=== PATIENT | male | born 1980 | race Caucasian/White ===

== ENCOUNTER 2017-08-12 16:02 | Emergency (ER) | payer SELFPAY ==
[~2017-08-12] VITALS: Ht 175.3 cm; Wt 90.3 kg
[~2017-08-12 16:02] MED LIST: ACETAMINOPHEN-1 EAC1 PO; KEFLEX500 MG PO; NAPROXEN500 MG PO
== END 2017-08-12 19:35 | disposition home or self-care (01) ==
LOC: ED 16:02
DX: L02.415 Cutaneous abscess of right lower limb (principal)

== ENCOUNTER 2018-03-03 21:47 | Emergency (ER) | payer SELFPAY ==
[~2018-03-03] VITALS: Ht 175.3 cm; Wt 98.9 kg
== END 2018-03-03 23:00 | disposition left against medical advice (07) ==
LOC: ED 21:47
DX: Z53.21 Procedure and treatment not carried out due to patient leaving prior to being seen by health care provider (principal)

== ENCOUNTER 2020-04-02 13:32 | Emergency (ER) | payer SELFPAY ==
[~2020-04-02] VITALS: Ht 175.3 cm; Wt 98.9 kg
--- OUTSIDE RECORDS SUMMARY | ~2020-04-02 | XMS | Encounter Summary ---
Demographics + + + | Address | [address] | | | [address] | | | [place] [address] | + + + | Home Phone | | + + + | Preferred Language | Unknown | + + + | Marital Status | Single | + + + | Church Affiliation | Unknown | + + + | Race | White | + + + | Ethnic Group | Not or | + + + Author + + + | Author | [facility] | | | and [place] | + + + | Organization | [facility] | | | and [place] | + + + | Address | Unknown | + + + | Phone | Unavailable | + + + Support + + +---------+ + | Name | Relationship | Address | Phone | + + +---------+ + | Per Patient | ECON | Unknown | | | [phone] None | | | | + + +---------+ + Care Team Providers + +------+ + | Care Ore Crusher Name | Role | Phone | + +------+ + | Wenceslao Sanford | PCP | | + +------+ + Encounter Details +--------+ + + + + | Date | Type | Department | Care Team | Description | +--------+ + + + + | 11/23/ | Hospital | [facility] | Wenceslao Sanford | Chronic low back | | 2013 | Encounter | MED CTR XRAY [address] | [address] | pain | | | | [place] | [address] [place] | | | | | [place] [address] | [place] [address] | | | | | [phone] | [phone] | | | | | | | | +--------+ + + + + Social History + +-------+ +--------+------+ | Tobacco Use | Types | Packs/Day | Years | Date | | | | | Used | | + +-------+ +--------+------+ | Never Assessed | | | | | + +-------+ +--------+------+ + + + | Sex Assigned at | Date Recorded | | | | + + + | Not on file | | + + + documented as of this encounter Plan of Treatment Not on filedocumented as of this encounter Procedures + +--------+ + + + | Procedure Name | Priori | Date/Time | Associated Diagnosis | Comments | | | ty | | | | + +--------+ + + + | XR LUMBAR SPINE 4 + | Routin | 11/23/2013 | Chronic low back | Results for this | | VW | e | 1:36 PM | pain | procedure are in the | | | | PDT | | results section. | + +--------+ + + + documented in this encounter Results XR Lumbar Spine 4 + Vw (11/23/2013 1:36 PM PDT) + + | Specimen | + + | | + + + + ----+ | Narrative | Performed At | + + ----+ | XR LUMBAR | [facility] | | SPINE 4 + VW 11/23/2013 1:10 PM HISTORY: chronic low back pain. | LAB | | COMPARISON: None. FINDINGS:There is mild spondylosis. Vertebral body | | | height are preserved with no evidencefor compression fractures. Bone | | | mineralization is normal. Disc height aremaintained. Facet joints are | | | intact. There is no evidence for spondylolysis.Visualized ribs and | | | pelvic osseous structures show no acute findings. IMPRESSION -MILD | | | SPONDYLOSIS. Dictated and Signed by: Huseyin Denis MD Electronically | | | signed: 11/23/2013 1:49 PM | | |maintained. Facet joints are intact. There is no evidence for spondylolysis. | | |Visualized ribs and pelvic osseous structures show no acute findings. | | | | | |IMPRESSION - | | |MILD SPONDYLOSIS. | | | | | |Dictated and Signed by: Huseyin Denis MD | | | Electronically signed: 11/23/2013 1:49 PM | | + + ----+ + + | Procedure Note | + + | Luigi, Rad Results In - 11/23/2013 1:52 PM PDT XR LUMBAR SPINE 4 + VW 11/23/2013 1:10 | | PMHISTORY: chronic low back pain.COMPARISON: None.FINDINGS:There is mild spondylosis. | | Vertebral body height are preserved with no evidencefor compression fractures. Bone | | mineralization is normal. Disc height aremaintained. Facet joints are intact. There is | | no evidence for spondylolysis.Visualized ribs and pelvic osseous structures show no | | acute findings.IMPRESSION -MILD SPONDYLOSIS.Dictated and Signed by: Huseyin Denis MD | | Electronically signed: 11/23/2013 1:49 PM | |There is mild spondylosis. Vertebral body height are preserved with no evidence | |for compression fractures. Bone mineralization is normal. Disc height are | |maintained. Facet joints are intact. There is no evidence for spondylolysis. | |Visualized ribs and pelvic osseous structures show no acute findings. | | | |IMPRESSION - | |MILD SPONDYLOSIS. | | | |Dictated and Signed by: Huseyin Denis MD | | Electronically signed: 11/23/2013 1:49 PM | + + + +---------+ + + | Performing | Address | City/State/Zipcode | Phone Number | | Organization | | | | + +---------+ + + | MISCELLANEOUS LAB | | | [phone] | + +---------+ + + | MISCELANIOUS LAB | | | [phone] | + +---------+ + + documented in this encounter Visit Diagnoses + + | Diagnosis | + + | Chronic low back pain Lumbago | + + documented in this encounter"
--- OUTSIDE RECORDS SUMMARY | ~2020-04-02 | XMS | Clinical Summary ---
Demographics + + + | Address | [address] | | | [address] | | | [place] [address] | + + + | Home Phone | | + + + | Preferred Language | Unknown | + + + | Marital Status | Single | + + + | Presybeterian Affiliation | Unknown | + + + | Race | White | + + + | Ethnic Group | Not or | + + + Author + + + | Author | [facility] | | | and [place] | + + + | Organization | [facility] | | | and [place] | + + + | Address | Unknown | + + + | Phone | Unavailable | + + + Support + + +---------+ + | Name | Relationship | Address | Phone | + + +---------+ + | Per Patient | ECON | Unknown | | | [phone] None | | | | + + +---------+ + Care Team Providers + +------+ + | Care Bowling Floor Desk Clerk Name | Role | Phone | + [...] | [employer] | [facility] | [id number] | | [phone] | | Medica | [...] | | | 1 (Home) | [place] [address] | + +--------+ +--------+ + + Advance Directives + + + + + | Type | Date Recorded | Patient | Explanation | | | | Operations Recruiter | | + + + + + | Power of | | | | | Jewelry Sales Representative | | | | + + + + + | Advance | | | | | Directive | | | | + + + + +"
--- OUTSIDE RECORDS SUMMARY | 2020-04-02 13:36 | XMS ---
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 Kris has no Care Guidelines for this patient. Luci VISIT COUNT (12 MO.) 1 [facility] TOTAL 1 NOTE: Visits indicate total known visits. ED/C VISIT TRACKING (12 MO.) 04/02/2020 13:32 [facility] [place] TYPE: Emergency COMPLAINT: - LEFT SIDED FACIAL DROOPING INPATIENT VISIT TRACKING (12 MO.) No inpatient visits to display in this time frame [id number]
[2020-04-02] MEDS ORDERED: VALACYCLOVIR1000 MG PO (14:23)
[2020-04-02] MEDS ORDERED: PREDNISONE20 MG PO (14:23)
[2020-04-02] MEDS ORDERED: NORCO 5-325 TA1 EACH PO (14:24)
== END 2020-04-02 14:47 | disposition home or self-care (01) ==
LOC: ED 13:32
DX: B02.21 Postherpetic geniculate ganglionitis (principal)
CPT/HCPCS: 99283

== ENCOUNTER 2020-05-17 13:16 | Emergency (ER) | payer SELFPAY ==
[~2020-05-17] VITALS: Ht 175.3 cm; Wt 98.9 kg
--- OUTSIDE RECORDS SUMMARY | ~2020-05-17 | XMS | Clinical Summary ---
Demographics + + + | Address | [address] | | | [address] | | | [place] [address] | + + + | Home Phone | | + + + | Preferred Language | Unknown | + + + | Marital Status | Single | + + + | Jehovah'S Witness Affiliation | Unknown | + + + | Race | White | + + + | Ethnic Group | Not or | + + + Author + + + | Author | [facility] | | | and [place] | + + + | Organization | [facility] | | | and [place] | + + + | Address | Unknown | + + + | Phone | Unavailable | + + + Support + + +---------+ + | Name | Relationship | Address | Phone | + + +---------+ + | Per Patient | ECON | Unknown | | | [phone] None | | | | + + +---------+ + Care Team Providers + +------+ + | Care Cream Dumper Name | Role | Phone | + [...] | [employer] | [facility] | [id number] | | [phone] | | Medica | [...] | | | [address] (Home) | [place] [address] | + +--------+ +--------+ + + Advance Directives + + + + + | Type | Date Recorded | Patient | Explanation | | | | Travel Assistant | | + + + + + | Power of | | | | | Supervisor Meter Shop | | | | + + + + + | Advance | | | | | Directive | | | | + + + + +"
--- OUTSIDE RECORDS SUMMARY | ~2020-05-17 | XMS | Encounter Summary ---
Demographics + + + | Address | [address] | | | [address] | | | [place] [address] | + + + | Home Phone | | + + + | Preferred Language | Unknown | + + + | Marital Status | Single | + + + | Bahai Affiliation | Unknown | + + + | Race | White | + + + | Ethnic Group | Not or | + + + Author + + + | Author | [facility] | | | and [place] | + + + | Organization | [facility] | | | and [place] | + + + | Address | Unknown | + + + | Phone | Unavailable | + + + Support + + +---------+ + | Name | Relationship | Address | Phone | + + +---------+ + | Per Patient | ECON | Unknown | | | [phone] None | | | | + + +---------+ + Care Team Providers + +------+ + | Care Tube Former Operator Name | Role | Phone | + +------+ + | Wenceslao Sanford | PCP | | + +------+ + Encounter Details +--------+ + + + + | Date | Type | Department | Care Team | Description | +--------+ + + + + | 11/23/ | Hospital | [facility] | Wenceslao Sanford | Chronic low back | | 2013 | Encounter | MED CTR XRAY [address] | [address] | pain | | | | [place] | [address] [place] | | | | | [place] [address] | [place] [address] | | | | | [phone] | [phone] | | | | | | | [...] + | MISCELLANEOUS LAB | | | [phone] | + +---------+ + + | MISCELANIOUS LAB | | | [phone] | + +---------+ + + documented in this encounter Visit Diagnoses + + | Diagnosis | + + | Chronic low back pain Lumbago | + + documented in this encounter"
[~2020-05-17 13:16] MED LIST changes: +NORCO 5-325 TA1 EACH PO; +PREDNISONE20 MG PO; +VALACYCLOVIR1000 MG PO
--- OUTSIDE RECORDS SUMMARY | 2020-05-17 13:20 | XMS ---
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 Care History Medical/Surgical 04/03/2020 [facility] CONTACTED PHONE #\T\nbsp; LISTED- TRISHA ANSWERED AND STATED PATIENT CONTACT NUMBER IS INCORRECT. - PATIENT WOULD BENEFIT - TO APPLY FOR STATE INSURANCE IF NO OTHER INSURANCE AVAILABLE. PLEASE CONTACT OPAL EXT [phone] IF PATIENT IS SEEN IN THE ED TO HELP PATIENT APPLY FOR INSURANCE BENEFITS. - PLEASE HAVE PATIENT PROVIDE UPDATED PHONE # E.D. VISIT COUNT (12 MO.) 2 [facility] TOTAL 2 NOTE: Visits indicate total known visits. ED/UCC VISIT TRACKING (12 MO.) 05/17/2020 13:17 [facility] [place] TYPE: Emergency COMPLAINT: - MULTIPLE COMPLAINTS 04/02/2020 13:32 [facility] [place] TYPE: Emergency COMPLAINT: - LEFT SIDED FACIAL DROOPING DIAGNOSES: - Postherpetic geniculate ganglionitis - Facial weakness INPATIENT VISIT TRACKING (12 MO.) No inpatient visits to display in this time frame [id number]
[2020-05-17] MEDS ORDERED: ONDANSETRON ODT8 MG PO (14:43)
[2020-05-17] MEDS ORDERED: PREDNISONE20 MG PO (14:43)
[2020-05-17] MEDS ORDERED: FAMCICLOVIR500 MG PO (14:43)
== END 2020-05-17 15:00 | disposition home or self-care (01) ==
LOC: ED 13:16
DX: G51.0 Bell's palsy (principal); F17.200 Nicotine dependence, unspecified, uncomplicated; Z79.52 Long term (current) use of systemic steroids; Z79.899 Other long term (current) drug therapy
CPT/HCPCS: 70450; 99284-25

== ENCOUNTER → 2020-05-28 | Emergency (ER) | payer OTHER ==
[~2020-05-28] VITALS: Ht 175.3 cm; Wt 101.2 kg
[~2020-05-28] MED LIST changes: +CYCLOBENZAPRINE10 MG PO; +FAMCICLOVIR500 MG PO; +ONDANSETRON ODT8 MG PO
--- OUTSIDE RECORDS SUMMARY | ~2020-05-28 | XMS | Clinical Summary ---
Demographics + + + | Address | [address] | | | [address] | | | [place] [address] | + + + | Home Phone | | + + + | Preferred Language | Unknown | + + + | Marital Status | Single | + + + | Congregational Affiliation | Unknown | + + + | Race | White | + + + | Ethnic Group | Not or | + + + Author + + + | Author | [facility] | | | and [place] | + + + | Organization | [facility] | | | and [place] | + + + | Address | Unknown | + + + | Phone | Unavailable | + + + Support + + +---------+ + | Name | Relationship | Address | Phone | + + +---------+ + | Per Patient | ECON | Unknown | | | [phone] None | | | | + + +---------+ + Care Team Providers + +------+ + | Care Canvas Goods Fabricator Name | Role | Phone | + +------+ + | Wenceslao Sanford | PCP | | + +------+ + Allergies Not on File Medications Not on file Active Problems Not on file Social History + +-------+ +--------+------+ | Tobacco [...] on file | | + + + Last Filed Vital Signs Not on file Plan of Treatment + + +-------+ + | Health Maintenance | Due Date | Last | Comments | | | | Done | | + + +-------+ + | Vaccine: | | | | | Dtap/Tdap/Td (1 - | 1 | | | | Tdap) | | | | + + +-------+ + | Vaccine: Influenza | | | | | (#1) | 0 | | | + + +-------+ + Results Not on filefrom Last 3 Months Insurance + +--------+ +--------+ +---------+--------+ | Payer | Benefi | Subscriber | Effect | Phone | Address | Type | | | t Plan | ID | ray | | | | | | / | | Dates | | | | | | Group | | | | | | + +--------+ +--------+ +---------+--------+ | [employer] | [employer] | [id number] | | [phone] | | Medica | | MEDICAID HMO | HEALTH | | [phone] | 1 | | id | | | MDCD | | esent | | | | | [place] | | | | | | + +--------+ +--------+ +---------+--------+ + +--------+ +--------+ + + | Guarantor Name | Accoun | Relation to | Date | Phone | Billing Address | | | t Type | Patient | of | | | | | | | | | | + +--------+ +--------+ + + | Royce Goldman | Person | Self [birth year] | [address] | | | al/[place] | | 1981 | [phone] | [address] [place] | | | [place] | | | 1 (Home) | [place] [address] | + +--------+ +--------+ + + Advance Directives + + + + + | Type | Date Recorded | Patient | Explanation | | | | Weaver Apprentice | | + + + + + | Power of | | | | | Debone Supervisor | | | | + + + + + | Advance | | | | | Directive | | | | + + + + +"
--- OUTSIDE RECORDS SUMMARY | ~2020-05-28 | XMS | Encounter Summary ---
Demographics + + + | Address | [address] | | | [address] | | | [place] [address] | + + + | Home Phone | | + + + | Preferred Language | Unknown | + + + | Marital Status | Single | + + + | Sabianism Affiliation | Unknown | + + + | Race | White | + + + | Ethnic Group | Not or | + + + Author + + + | Author | [facility] | | | and [place] | + + + | Organization | [facility] | | | and [place] | + + + | Address | Unknown | + + + | Phone | Unavailable | + + + Support + + +---------+ + | Name | Relationship | Address | Phone | + + +---------+ + | Per Patient | ECON | Unknown | | | [phone] None | | | | + + +---------+ + Care Team Providers + +------+ + | Care Pastry Decorator Name | Role | Phone | + +------+ + | Wenceslao Sanford | PCP | | + +------+ + Encounter Details +--------+ + + + + | Date | Type | Department | Care Team | Description | +--------+ + + + + | 11/23/ | Hospital | [facility] | Wenceslao Sanford | Chronic low back | | 2013 | Encounter | MED CTR XRAY [address] | [address] | pain | | | | [place] | [address] [place] | | | | | [place] [address] | [place] [address] | | | | | [phone] | [phone] | | | | | | | [...] + | MISCELLANEOUS LAB | | | [phone] | + +---------+ + + | MISCELANIOUS LAB | | | [phone] | + +---------+ + + documented in this encounter Visit Diagnoses + + | Diagnosis | + + | Chronic low back pain Lumbago | + + documented in this encounter"
--- OUTSIDE RECORDS SUMMARY | 2020-05-28 18:02 | XMS ---
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 Care History Medical/Surgical 04/03/2020 [facility] CONTACTED PHONE #\T\nbsp; LISTED- TRISHA ANSWERED AND STATED PATIENT CONTACT NUMBER IS INCORRECT. - PATIENT WOULD BENEFIT - TO APPLY FOR STATE INSURANCE IF NO OTHER INSURANCE AVAILABLE. PLEASE CONTACT OPAL EXT [phone] IF PATIENT IS SEEN IN THE ED TO HELP PATIENT APPLY FOR INSURANCE BENEFITS. - PLEASE HAVE PATIENT PROVIDE UPDATED PHONE # E.D. VISIT COUNT (12 MO.) 3 [facility] TOTAL 3 NOTE: Visits indicate total known visits. 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
== END ==
LOC: ED 18:00
DX: G51.0 Bell's palsy (principal); F17.200 Nicotine dependence, unspecified, uncomplicated; Z79.52 Long term (current) use of systemic steroids; Z79.899 Other long term (current) drug therapy
CPT/HCPCS: 99284

== ENCOUNTER 2021-07-15 09:20 | Emergency (ER) | payer SELFPAY ==
[~2021-07-15] VITALS: Ht 177.8 cm; Wt 97.5 kg
--- OUTSIDE RECORDS SUMMARY | 2021-07-15 09:28 | XMS ---
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 Kirs has no Care Guidelines for this patient. Care History Medical/Surgical 05/29/2020 [facility] IS UNABLE TO CONTACT PATIENT AT NUMBER LISTED-PLEASE CONTACT Shayla -MADDIE [phone] IF PATIENT IS SEEN IN THE ED. 04/03/2020 [facility] CONTACTED PHONE #\T\nbsp; LISTED- TRISHA ANSWERED AND STATED PATIENT CONTACT NUMBER IS INCORRECT. - PATIENT WOULD BENEFIT - TO APPLY FOR STATE INSURANCE IF NO OTHER INSURANCE AVAILABLE. PLEASE CONTACT OPAL GARCIA [phone] IF PATIENT IS SEEN IN THE ED TO HELP PATIENT APPLY FOR INSURANCE BENEFITS. - PLEASE HAVE PATIENT PROVIDE UPDATED PHONE # E.D. VISIT COUNT (12 MO.) 1 [facility] TOTAL 1 NOTE: Visits indicate total known visits. ED/UCC VISIT TRACKING (12 MO.) 07/15/2021 09:21 [facility] [place] TYPE: Emergency COMPLAINT: - DENTAL PROBLEM INPATIENT VISIT TRACKING (12 MO.) No inpatient visits to display in this time frame [id number]
[2021-07-15] MEDS ORDERED: ADVIL200 MG PO (09:41)
[2021-07-15] MEDS ORDERED: HYDROCODON-ACE1 EA11 PO (10:15)
[2021-07-15] MEDS ORDERED: PENICILLIN V P500 MG PO (10:15)
== END 2021-07-15 11:30 | disposition home or self-care (01) ==
LOC: ED 09:20
DX: K04.7 Periapical abscess without sinus (principal); F17.200 Nicotine dependence, unspecified, uncomplicated
CPT/HCPCS: 41800; 99282-25; A9270